=== PATIENT | female | born 1965 ===

== ENCOUNTER 2025-02-04 06:05 | Day surgery (SDC) | payer OTHER, SELFPAY ==
[2025-01-22 08:59] LABS: Hematocrit 36.2 % (37.0-47.0); Hemoglobin 12.2 g/dL (12.0-16.0); Mean Corp Hgb Conc. 33.7 g/dL (33.0-37.0); Mean Corpuscular Volume 84.6 fL (81.0-99.0); Platelet Count 344 10^3/uL (130-400); Red Cell Dist. Width 13.8 % (11.5-14.5)
[2025-01-22 13:55] VITALS: BMI 39.1
[2025-02-04] VITALS (18 sets, daily range): BP systolic 10–153; BP diastolic 57–86; BMI 39.1
[2025-02-04] MEDS: NORMOSOL-R/PLASMALYTE-A 1000 IV (07:06)
--- NOTE | 2025-02-04 10:32 | W.IMMPOSTOP ---
Surgical Immed Post Op Note
-
Primary Surgeon: Arsalan Ramos
Assisting Surgeon: Zeeshan Madrigal
Pre-op Diagnosis: Likely thyroid carcinoma
Post-op Diagnosis: Same
Procedure Performed: Total thyroidectomy
Anesthesia Type: General
Specimen / Cultures: Total thyroid
Estimated Blood Loss: 20ml
Complications: None
Operative Findings: Hard nodule, right
[2025-02-04] MEDS: SUBLIMAZE 25 MCG IV (11:15)
--- NOTE | 2025-02-04 14:15 | PTCARENOTE ---
Pt received from the PACU via bed. Pt is AAOx3, HRR, lungs are clear, resp. easy, pulse ox 96% on 2LVia nc. Pt's neck with surgical dressing, C/D/I, no drainage noted. ANNE drain to neck area intact, scant serosanguinous fluid noted. VSS, Pt is
afebrile. Pt instructed on plan of care. Pt verbalized understanding of instructions. Pt reports pain as moderate, but requesting 1/2 Percocet only. Will reach out to the provider. [facility]gers is within reach.
[2025-02-04] MEDS: LR 1000 IV (14:44)
[2025-02-04] MEDS: PERCOCET 5/325 0.5 TABLET PO ×2 (14:53→21:30)
[2025-02-04] MEDS: ANCEF 5 IV ×2 (17:53→23:17)
[2025-02-04] MEDS: TYLENOL 650 MG PO (21:29)
[2025-02-05] MEDS: PERCOCET 5/325 0.5 TABLET PO ×3 (02:25→12:49)
[2025-02-05] MEDS: TYLENOL 650 MG PO ×2 (02:25→11:37)
[2025-02-05] MEDS: LR IV (02:26)
[2025-02-05] MEDS: LR 1000 IV ×2 (02:26→10:51)
[2025-02-05 03:00] VITALS: BP 141/71
[2025-02-05 07:14] LABS: Calcium 8.2 mg/dl (8.4-10.2)
[2025-02-05 07:41] VITALS: BP 162/78
[2025-02-05] MEDS: FLUSH (NSS) 1 FLUSH IV (08:14)
[2025-02-05] MEDS: ANCEF 5 IV (08:14)
--- NOTE | 2025-02-05 09:08 | CM ---
Cm reviewed medical records. CM met with patient in room. Patient confirmed demographics. Patient lives independently with . Patient does not have a history of VN, SNF or DME. Patient is active with her PCP. Patient has medication coverage.
Patient would be agreeable to [facility] if needed on discharge.
PLAN: home
[2025-02-05] MEDS: ORETIC 25 MG PO (09:54)
[2025-02-05] MEDS: ZESTRIL 20 MG PO (09:54)
[2025-02-05 12:01] VITALS: BP 158/79
--- NOTE | 2025-02-05 13:21 | W.PN.ENT ---
Today's Communication
-
d/c planning, calcium supp and synthroid
Impression / Plan
-
Pt is doing well POD1 s/p total thyroidectomy for PTC. Calcium is a little low. Will treat with empiric tums at d/c. She will f/u with endocrinology and synthroid will be started.
Subjective Data
-
Patient is doing well POD1 s/p total thyroidectomy for right PTC. She reports minimal pain, no hoarseness, trouble swallowing or breathing. No muscle cramps or twitching.
Objective Data
-
Vital Signs
Temp Pulse Resp BP Pulse Ox
98.4 F 70 16 158/79 97
02/05/25 12:01 02/05/25 12:01 02/05/25 12:01 02/05/25 12:01 02/05/25 12:01
Intake & Output
02/04/25 02/05/25 02/06/25
06:59 06:59 06:59
Intake:
Oral fluids 380 / 380 1320 / 1320
IV fluids (Total) 2039 / 2039
Normosol 600 / 600
Output:
Drain Output (Total)
[place]
Other:
Number of approximated MODERATE 1 1
amounts of urine
Lab Results
01/22/25 08:34
Calcium 8.2 mg/dl (8.4-10.2) L 02/05/25 06:09
Physical Exam
-
NAD, Alert and oriented
Neck, Incision c/d/i, drain with ss d/c removed. dressed with gauze and tape.
== END 2025-02-05 14:18 | disposition home or self-care (01) ==
LOC: SDS 06:05
PROVIDERS: ATTENDING PHYSICIAN Otolaryngology; FAMILY PHYSICIAN Family Medicine
DX: C73 Malignant neoplasm of thyroid gland (principal); E04.1 Nontoxic single thyroid nodule; E06.9 Thyroiditis, unspecified
CPT/HCPCS: 60240; 36415; 82310; 85027; 87389; 88307; 93005